=== PATIENT | female | born 1990 | race Asian ===

== ENCOUNTER 2017-06-20 17:57 | Emergency (ER) | payer OTHER ==
[~2017-06-20] VITALS: Ht 152.4 cm; Wt 75.5 kg
[2017-06-20 18:07] VITALS: Ht 152.4 cm; Wt 75.5 kg
[2017-06-20 19:02] VITALS: BP 110/58; PULSE 68; RESP 22
[2017-06-20] MEDS ORDERED: PRENAT PO (19:19)
--- NOTE | 2017-06-20 19:23 | ERD ---
ER Documentation Chief Complaint Date/Time DATE: 06/20/17 TIME: 19:17 Chief Complaint 32 WEEKS PREG, CLEARED BY OB, REPORTS WEAKNESS AND RACING HR AT TIMES HPI This 27-year-old female presents here in emergency department for evaluation, patient was cleared by OB, obstetric liver and delivery department, patient is approximately 32 weeks with a history of chronic anemia, patient was seen at the OB department, had laboratory testing done, was told to continuously have anemia, had IV iron given to her upstairs, patient verbalizing much better, patient was advised to come here in emergency department for possible evaluation of EKG possible cardiac evaluation. At this time, patient does not have any others complaints. Patient does not abdominal pain. Patient's ABG is 08/17/2017. 4. Patient denies any chest pain at this time. ROS All systems reviewed and are negative except as per history of present illness. Medications Home Meds Reported Medications Multivit/Min/Fol Ac/Iron/Pren* ( S*) Unknown Strength Tab, PO DAILY, TAB 06/20/17 Allergies Allergies: Coded Allergies: No Known Allergy (Unverified , 06/20/17) PMhx/Soc Medical and Surgical Hx: pt denies Medical Hx History of Surgery: Yes (c section 2011) Anesthesia Reaction: No Hx Neurological Disorder: No Hx Respiratory Disorders: No Hx Cardiac Disorders: No Hx Miscellaneous Medical Probl: Yes (anemia) Hx Alcohol Use: No Hx Substance Use: No Hx Tobacco Use: No Smoking Status: Never smoker FmHx Family History: No coronary disease, No diabetes, No other Physical Exam Vitals Vital Signs Date Time Temp Pulse Resp B/P Pulse Ox O2 Delivery O2 Flow Rate FiO2 06/20/17 19:02 68 22 110/58 100 06/20/17 18:07 98.5 97 22 113/58 100 Physical Exam GENERAL: The patient is well developed and appropriate for usual state of health, in no apparent distress. CHEST: Clear to auscultation bilaterally. There are no rales, wheezes or rhonchi. HEART: Regular rate and rhythm. No murmurs, clicks, rubs or gallops. No S3 or S4. ABDOMEN: Soft, nontender and nondistended. Good bowel sounds. No rebound or guarding. No gross peritonitis. No gross organomegaly or masses. No House sign or McBurney point tenderness. BACK: No midline or flank tenderness. EXTREMITIES: Equal pulses bilaterally. There is no peripheral clubbing, cyanosis or edema. No focal swelling or erythema. Full range of motion. Grossly neurovascularly intact. NEURO: Alert and oriented. Cranial nerves 2-12 intact. Motor strength in all 4 extremities with 5/5 strength. Sensation grossly intact. Normal speech and gait. SKIN: There is no apparent rash or petechia. The skin is warm and dry. HEMATOLOGIC AND LYMPHATIC: There is no evidence of excessive bruising or lymphedema. No gross cervical, axillary, or inguinal lymphadenopathy. Results 24 hrs EKG was done, read by me and is normal sinus rhythm at a rate of 84, normal axis , there is no ST changes or changes in the EKG that indicates any cardiac emergencies at this time. Patient's EKG was also reviewed by Dr. Johns. Impression: no acute findings on EKG HGB 9.2 HCT 26.2 PLT 183 WBC: 11.3 Urinalysis; neg for infection CMP: NA 135 K 3.7 CL 105 CO2 22 GLU 85 BUN9 CR 0.76 Procedures/MDM Medical Decision Making: Patient symptoms or fatigability on and off palpitations most likely consistent with her chronic anemia. Laboratory test results done. This was reviewed. Hemoglobin 9.2 hematocrit is 28.6. CMP does not show any symptoms of electrolyte Imbalance. No symptoms of dehydration.There is low suspicion for cardiopulmonary emergencies at this time. Patient has low risk factors. EKG is normal, there is no changes in the EKG that indicates cardiac emergencies. . There is low suspicion for aortic aneurysm, myocardial infarction, pneumothorax, pleural effusion, pulmonary embolism, or any other cardiopulmonary emergencies at this time. She was advised to follow-up with primary care doctor, OB doctor in the next 1- 2 days for further evaluation of symptoms. Patient is advised to return to emergency department for any worsening symptoms. Dispostion: Home. Stable Departure Diagnosis: Primary Impression: Fatigue Fatigue type: unspecified Qualified Code: R53.83 - Fatigue, unspecified type Additional Impression: Chronic anemia Condition: Stable Patient Instructions: Anemia, Iron Deficiency (Adult), Weakness, Unk Cause LESVIA KIRBY NP Jun 20, 2017 19:23
== END 2017-06-20 19:05 | disposition home or self-care (01) ==
LOC: FTE 17:57
DX: O26.813 Pregnancy related exhaustion and fatigue, third trimester (principal); O99.013 Anemia complicating pregnancy, third trimester; D53.9 Nutritional anemia, unspecified; R00.2 Palpitations; Z3A.32 32 weeks gestation of pregnancy
CPT/HCPCS: 93005; Z7502